=== PATIENT | female | born 2000 | race Caucasian/White ===

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

== ENCOUNTER 2020-09-30 21:05 | Emergency (ER) | payer OTHER ==
[2020-09-30 22:50] VITALS: BP 119/83
[2020-09-30 22:51] LABS: BILIRUBIN,URINE NEGATIVE (NEGATIVE); GLUCOSE, URINE (UA) NEGATIVE (NEGATIVE); KETONES,URINE (UA) NEGATIVE (NEGATIVE); LEUKOCYTE ESTERASE, URINE NEGATIVE (NEGATIVE); NITRITE,URINE NEGATIVE (NEGATIVE); OCCULT BLOOD,URINE NEGATIVE (NEGATIVE); PROTEIN,URINE NEGATIVE (NEGATIVE); UROBILINOGEN,URINE 0.2 (NORMAL) E.U./dL (NORMAL)
[2020-09-30 23:20] LABS: BACTERIA,URINE None Seen /HPF (None Seen); CLARITY,URINE CLEAR (CLEAR); HCG UR QUAL NEGATIVE; RBC,URINE None Seen /HPF (0-5); SQUAMOUS EPITHELIAL CELL,UR RARE Squamous (<= Few); WBC,URINE 0-3 /HPF (0-5)
--- NOTE | 2020-09-30 23:25 | ED Physician Documentation ---
History of Present Illness - Stated complaint Stated Complaint: FEMALE - Chief complaint Chief Complaint: General - History obtained from History obtained from: Patient - Additonal information Additional information: 20-year-old woman with multiple visits with healthcare in regards to painful intercourse presents with persistent pain after being abstinent for a week, as recommended by [place]. Patient denies urinary symptoms, abnormal discharge, bleeding or lesions. She states that she has had pain for the past 4 months since she got a new sexual partner, and it has been acutely worsening over the past 2 weeks, occurring during sex, and often hurting afterwards. Patient is unsure if she is getting lubricated enough. She is using lotions intermittently but not personal lubricant. Review of Systems Constitutional: denies: Fever, Chills GI: denies: Abdominal Pain, Nausea : denies: Dysuria, Frequency, Hematuria Skin: denies: Lesions Musculoskeletal: denies: Back pain PD PAST MEDICAL HISTORY - Past Surgical History Past Surgical History: No - Allergies Allergies/Adverse Reactions: Allergies Allergy/AdvReac Type Severity Reaction Status Date / Time No Known Drug Allergies Allergy Verified 09/30/20 21:09 - Social History Does the pt smoke?: No Smoking Status: Never smoker Does the pt drink ETOH?: No Does the pt have substance abuse?: No - Immunizations Immunizations are current?: No Immunizations: Other immun not current - POLST Patient has POLST: No PD ED PE NORMAL - Vitals Vital signs reviewed: Yes - General General: Alert and oriented X 3, No acute distress, Well developed/nourished - HEENT HEENT: Atraumatic, PERRL, EOMI - Abdomen Abdomen: Non tender, Non distended - Female Female : Continuous Mining Machine Operator present (RN), Other (Normal external female genitalia. Normal vaginal vault and physiologic discharge. Closed nulliparous healthy cervix. No cervical motion tenderness or adnexal tenderness) - Back Back: No CVA TTP - Derm Derm: Normal color, Warm and dry - Extremities Extremities: No deformity, No edema - Neuro Neuro: Alert and oriented X 3 - Psych Psych: Normal mood, Normal affect Results - Vitals Vitals: Vital Signs - 24 hr 09/30/20 09/30/20 21:09 22:49 Temperature 36.5 C 36.6 C Heart Rate 69 76 Respiratory 16 16 Rate Blood Pressure 117/74 119/83 H O2 Saturation 98 98 Oxygen O2 Source Room air - Labs Labs: Laboratory Tests 09/30/20 22:39 Urine Color YELLOW Urine Clarity CLEAR Urine pH 8.0 H Ur Specific [place] 1.020 Urine Protein NEGATIVE Urine Glucose (UA) NEGATIVE Urine Ketones NEGATIVE Urine Occult Blood NEGATIVE Urine Nitrite NEGATIVE Urine Bilirubin NEGATIVE Urine Urobilinogen 0.2 (NORMAL) Ur Leukocyte Esterase NEGATIVE Urine RBC None Seen Urine WBC 0-3 Ur Squamous Epith Cells RARE Squamous Urine Bacteria None Seen Urine HCG, Qual NEGATIVE PD MEDICAL DECISION MAKING - ED course ED course: 20-year-old woman presents with pain With intercourse. Education given about safe sex and healthy sex practices. Patient was provided with sterile lubricant. Return precautions given. [place] to [employer]. Departure - Departure Disposition: 01 Home, Self Care Clinical Impression: Dyspareunia Condition: Good Follow-Up: Stefanie Moore MD [Provider Admit Priv/Credential] - Comments: You were seen in the emergency department for dyspareunia (pain with sex). Make sure that you use personal lubricant and practice the measures that we discussed. You should make an account with your patient health portal in order to review your test results. We sent a vaginal sample for gonorrhea, chlamydia, bacterial vaginosis, trichomonas and yeast. [place] [employer]. Return to the emergency department if you have any new or worsening symptoms or other concerns.
[2020-10-01 00:50] LABS: BACTERIAL VAGINOSIS DNA POSITIVE (NEGATIVE); CANDIDA GLABRATA DNA NEGATIVE (NEGATIVE); CANDIDA GROUP DNA POSITIVE (NEGATIVE); CANDIDA KRUSEI DNA NEGATIVE (NEGATIVE); TRICHOMONAS VAGINALIS DNA NEGATIVE (NEGATIVE)
[2020-10-01 04:29] LABS: CHLAMYDIA TRACHOMATIS DNA NEGATIVE (NEGATIVE); NEISSERIA GONORRHOEAE DNA NEGATIVE (NEGATIVE); TRICHOMONAS VAGINALIS DNA NEGATIVE (NEGATIVE)
--- NOTE | 2020-10-01 07:05 | ED Physician Documentation ---
ED Addendum - Addendum Addendum: 10/01/20 07:04 note that patient tested positive for BV and yeast. Attempted to call but her phone is going to [facility]. Likely too early in the morning. D/w daytime staff midwife to contact her in regards to where to send her flagyl and clotrimazole scripts.
== END 2020-09-30 23:31 | disposition home or self-care (01) ==
LOC: ED 21:05
DX: N94.10 Unspecified dyspareunia (principal); N76.0 Acute vaginitis; B96.89 Other specified bacterial agents as the cause of diseases classified elsewhere; B37.3 Candidiasis of vulva and vagina
CPT/HCPCS: 81001; 81025; 87210; 87491; 87591; 87661; 87801; 99283; 99284

== ENCOUNTER 2022-11-20 11:07 | Emergency (ER) | payer MEDICAID, OTHER ==
[2022-11-20 11:22] VITALS: BP 136/94; O2SAT 98
--- NOTE | 2022-11-20 11:41 | ED Physician Documentation ---
PD HPI HEENT - Stated complaint Stated Complaint: JAW PX - Chief complaint Chief Complaint: Heent - History obtained from History obtained from: Patient - Additional information Additional information: For about a week now she has had a lot of pain over the left mandibular wisdom tooth with swelling there and a lot of pain of her gums that might be from smoking marijuana. She denies fevers. She went to the dentist 2 days ago and was referred to oral surgery for wisdom tooth extraction but she feels like she needs some other therapy in the interim. PD PAST MEDICAL HISTORY - Past Surgical History Past Surgical History: No - Present Medications Home Medications: Ambulatory Orders Medication Instructions Recorded Confirmed Amox/Clav 875/125 [Augmentin] 1 each PO Q12H #20 tablet 11/20/22 Chlorhexidine [Peridex] 15 ml PO BID #300 ml 11/20/22 Ibuprofen [Motrin] 600 mg PO Q6H PRN #30 tab 11/20/22 - Allergies Allergies/Adverse Reactions: Allergies Allergy/AdvReac Type Severity Reaction Status Date / Time No Known Drug Allergies Allergy Verified 09/30/20 21:09 - Social History Does the pt smoke?: No Smoking Status: Never smoker Does the pt drink ETOH?: No Does the pt have substance abuse?: No - Immunizations Immunizations are current?: No Immunizations: Other immun not current - POLST Patient has POLST: No PD ED PE NORMAL - Vitals Vital signs reviewed: Yes - General General: Alert and oriented X 3, No acute distress - HEENT HEENT: Other (She has pretty bad gingivitis almost to the point of calling a trench mouth especially on the posterior side of the upper incisors. There is pericoronitis over the left mandibular molar. No sublingual edema or trismus.) - Neuro Neuro: Alert and oriented X 3, Normal speech Results - Vitals Vitals: Vital Signs - 24 hr 11/20/22 11:15 Temperature 37 C Heart Rate 94 Respiratory 20 Rate Blood Pressure 136/94 H O2 Saturation 98 Oxygen O2 Source Room air Departure - Departure Disposition: 01 Home, Self Care Clinical Impression: Acute pericoronitis, Gingivitis Condition: Good Record reviewed to determine appropriate education?: Yes Instructions: ED Tooth Pain Prescriptions: Amox/Clav 875/125 [Augmentin] 1 each PO Q12H #20 tablet Ibuprofen [Motrin] 600 mg PO Q6H PRN #30 tab PRN Reason: Pain Chlorhexidine [Peridex] 15 ml PO BID #300 ml Comments: I sent your prescriptions electronically to [facility] in [place]. Use the referral for the oral surgeon next week as discussed. Return for new or worsening symptoms. Forms: PCP List
== END 2022-11-20 12:00 | disposition home or self-care (01) ==
LOC: ED 11:07
DX: K05.20 Aggressive periodontitis, unspecified (principal); K05.10 Chronic gingivitis, plaque induced
CPT/HCPCS: 99282; 99283

== ENCOUNTER 2023-10-13 08:00 | Outpatient (CLI) | payer MEDICAID ==
[2023-10-13 15:58] LABS: BILIRUBIN,URINE NEGATIVE (NEGATIVE); GLUCOSE, URINE (UA) NEGATIVE (NEGATIVE); KETONES,URINE (UA) NEGATIVE (NEGATIVE); LEUKOCYTE ESTERASE, URINE NEGATIVE (NEGATIVE); NITRITE,URINE NEGATIVE (NEGATIVE); OCCULT BLOOD,URINE NEGATIVE (NEGATIVE); PROTEIN,URINE NEGATIVE (NEGATIVE); UROBILINOGEN,URINE 0.2 (NORMAL) E.U./dL (NORMAL)
[2023-10-13 17:02] LABS: AMORPHOUS SEDIMENT,UR Few /LPF; BACTERIA,URINE None Seen /HPF (None Seen); CLARITY,URINE CLOUDY (CLEAR); RBC,URINE None Seen /HPF (0-5); SQUAMOUS EPITHELIAL CELL,UR MANY Squamous (<= Few); WBC,URINE 0-3 /HPF (0-5)
[2023-10-13 20:45] LABS: BACTERIAL VAGINOSIS DNA NEGATIVE (NEGATIVE); CANDIDA GLABRATA DNA NEGATIVE (NEGATIVE); CANDIDA GROUP DNA POSITIVE (NEGATIVE); CANDIDA KRUSEI DNA NEGATIVE (NEGATIVE); TRICHOMONAS VAGINALIS DNA NEGATIVE (NEGATIVE)
[2023-10-13 20:50] LABS: CHLAMYDIA TRACHOMATIS DNA NEGATIVE (NEGATIVE); NEISSERIA GONORRHOEAE DNA NEGATIVE (NEGATIVE)
== END 2023-10-13 23:59 | disposition home or self-care (01) ==
LOC: LAB.WC 08:00
PROVIDERS: ATTEND Nurse Practitioner
DX: R30.0 Dysuria (principal); Z11.3 Encounter for screening for infections with a predominantly sexual mode of transmission; L29.8 Other pruritus
CPT/HCPCS: 81001; 81514; 87086; 87491; 87591; 87661; 87801